=== PATIENT | male | born 2000 | race Caucasian/White ===

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

== ENCOUNTER 2022-06-27 22:34 | Emergency (ER) | payer BC, MEDICAID, SELFPAY ==
[2022-06-27 22:34] VITALS: BP 132/91; PULSE 71; RESP 16; TEMP 36.6; O2SAT 100; BMI 24.4
[2022-06-27 23:01] VITALS: PULSE 66; RESP 16; O2SAT 97
--- NOTE | 2022-06-27 23:01 | EKG12_ITS ---
Test Reason : CP Blood Pressure : / mmHG Vent. Rate : 064 BPM Atrial Rate : 064 BPM P-R Int : 168 ms QRS Dur : 090 ms QT Int : 390 ms P-R-T Axes : 071 077 056 degrees QTc Int : 402 ms Normal sinus rhythm Normal ECG Confirmed by ABELARDO RASHID, ORESTES ([id number]), publications editor CANDIE PEREZ ([id number]) on 06/30/2022 11:23:28 AM Referred By: NELSON Confirmed By:ORESTES ZHOU MD
[2022-06-27 23:11] VITALS: PULSE 42
--- NOTE | 2022-06-27 23:20 | RAD_ITS ---
INDICATION: chest pain EXAMINATION/TECHNIQUE: X-RAY - XR Chest 1 View COMPARISON: None. FINDINGS: LINES/DEVICES: None. LUNGS: No consolidation, edema or effusion. No pneumothorax. MEDIASTINUM AND CARDIOVASCULAR STRUCTURES: Cardiac silhouette not enlarged. Central airways and mediastinal contour are unremarkable. BONES AND SOFT TISSUES: Unremarkable. RAD/Chest 1 View (Portable) IMPRESSION: No acute cardiopulmonary disease. Electronically Signed: Roel Nelson MD at 23:32 EST ,
[2022-06-27 23:44] LABS: Absolute Lymphocyte Count 2.74 X10^3/uL (0.83-4.51); Absolute Neutrophil Count 3.7 X10^3/uL (2.0-7.7); Basophil# 0.06 X10^3/uL; Basophil% 0.8 % (0-1); Eosinophil# 0.22 X10^3/uL; Hematocrit 42.5 % (40-54); Hemoglobin 13.8 g/dL (13.0-16.5); Lymphocyte # 2.74 X10^3/ul (0.83-4.51); Lymphocyte % 37.1 % (19-41); Mean Corp Hgb Conc 32.5 g/dL (32-36); Mean Corpuscular Hgb 29.4 pg (27.0-32.0); Mean Corpuscular Volume 90.6 fL (80-94); Mean Platelet Vol. 10.9 fl (6.2-12.0); Monocyte# 0.67 X10^3/uL; Monocyte% 9.1 % (0-10); NRBC Flagged by Analyzer 0 % (0-5); Neutrophil # 3.67 X10^3/uL (2.7-7.7); Neutrophil % 49.7 % (47-70); Platelet Count 216 K/mm3 (150-450); RBC Distribution Width CV 12.3 % (11.6-14.6); RBC Distribution Width SD 40.2 fl (35.1-43.9); Red Blood Count 4.69 M/mm3 (4.6-6.2); White Blood Count 7.4 K/mm3 (4.4-11.0)
[2022-06-28 00:04] LABS: Anion Gap 1 (5-15); BUN 25 mg/dL (7-18); BUN/Creat Ratio 21.9 RATIO (10-20); Calcium,Total 8.9 mg/dL (8.5-10.1); Chloride 108 mmol/L (98-107); Creatinine, Serum 1.14 mg/dL (0.70-1.30); EST Glomerular Filtration Rate 87 mL/min (>60); Est Glom Filt Rate - Afr Amer 105 mL/min (>60); Estimated Creatinine Clearance 113.45 ml/min; Glucose 108 mg/dL (74-106); Potassium 3.3 mmol/L (3.5-5.1); Sodium Level 139 mmol/L (136-145); Troponin-I HS 5 pg/mL (3.0-78.0)
[2022-06-28 00:24] VITALS: PULSE 64; RESP 15; O2SAT 99
--- NOTE | 2022-06-28 00:56 | EX.ED.DYSGE1 ---
HPI History of Present Illness Chief Complaint: Chest Pain Narrative Narrative: Patient is a 22-year-old male with no significant past medical history. He states that this evening he was having sexual intercourse with his girlfriend and while doing so developed some midsternal chest discomfort. He states there was no radiation of the pain and he denies any nausea vomiting or diaphoresis. He states that there is no illicit drug use. He denies any recent travel surgery or history of DVT/PE. He does state that his father from a sudden cardiac event at age 28. Therefore with his symptom onset and family history he was concerned for cardiac event and comes in for evaluation [facility] Medical History (Updated 06/28/22 @ 00:[address] Law Alvarado DO) monitor for heart issues Home Medications ibuprofen 200 mg tablet 200 mg PO Q6H PRN Pain Or Fever 03/22/20 [History Last Taken Unknown] acetaminophen 500 mg tablet 1,000 mg PO Q6H PRN #100 tabs 04/02/20 [Rx Last Taken Unknown] cephalexin 500 mg capsule (Keflex) 500 mg PO TID #30 caps 04/26/20 [Rx Last Taken Unknown] Allergy/AdvReac Type Severity Reaction Status Date / Time penicillin V Allergy Mild hives Verified 06/27/22 22:36 sulfadimethoxine Allergy Mild Hives Verified 06/27/22 22:36 Family History (Updated 09/08/17 @ 13:07 by Tata Ramirez) Father Myocardial infarction Surgical History (Updated 09/08/17 @ 13:06 by Tata Ramirez) S/P tonsillectomy and adenoidectomy Social History (Updated 06/24/20 @ 15:[address] Jasson Gutiérrez DO) Smoking Status: Never smoker ROS ROS ED Constitutional Constitutional ED: Denies chills or fever(s) ENT ENT ED: Denies sore throat Cardiovascular Cardiovascular: Reports chest pain; Denies palpitations or racing heartbeat Respiratory/Chest Respiratory/Chest: Denies cough or dyspnea Gastrointestinal Gastrointestinal: Denies abdominal pain, diarrhea, nausea or vomiting Genitourinary Genitourinary ED: Denies dysuria Musculoskeletal Musculoskeletal: Denies myalgias Integumentary Denies rash Neurologic Neurologic: Denies headache(s) Hematologic/Lymphatic Hematologic/Lymphatic: Denies easy bleeding or easy bruising EXAM Physical Exam Const Vital Signs: 06/27/22 22:34 06/27/22 23:11 06/27/22 23:01 Temperature 97.8 F Temperature Source Temporal Pulse Rate 71 42 L Respiratory Rate 16 Blood Pressure 132/91 H Blood Pressure Mean 104 Pulse Ox 100 Oxygen Delivery Method Room Air Room Air 06/27/22 23:01 06/28/22 00:24 06/28/22 01:02 Temperature Temperature Source Pulse Rate 66 64 56 L Respiratory Rate 16 15 17 Blood Pressure Blood Pressure Mean Pulse Ox 97 99 98 Oxygen Delivery Method Room Air Room Air Positive well nourished and well developed General Appearance ED: well developed Eyes PERRL and EOMs intact bilaterally Neck supple Chest Wall palpation of chest normal Resp normal respiratory effort and clear to auscultation bilaterally Cardio regular rate and regular rhythm Rate: other Other Details: Radial pulses are plus 2 out of 4 bilaterally they are equal and symmetric Carotid pulses equal and symmetric as well GI normal to inspection, nondistended, normoactive bowel sounds, non-tender, non-distended and no masses GI Narrative: No voluntary guarding or rigidity no pulsatile mass Auscultation: normoactive bowel sounds Palpation: soft Extremity normal to inspection Extremity Narrative: No asymmetric edema no pitting edema negative Homans' sign bilaterally Neuro oriented x3 and CN's II-XII intact bilaterally Sensorium / Orientation: alert Psych mental status grossly normal Skin no rashes or lesions noted MDM MDM MDM Narrative Medical decision making narrative: Patient presented to the ER mildly hypertensive otherwise with stable vitals. He is low risk for cardiovascular disease with his only real risk factor being family history in his father. Because of that history and his sudden onset of symptoms I did elect to perform a basic cardiac work-up. Chest x-ray revealed no acute lung pathology and blood work showed a normal troponin. Therefore at this time as work-up is negative and he is low risk for CAD I do not feel there is need for further evaluation and he is otherwise safe for discharge Lab Data Attestation: I reviewed the patient's lab results. Labs: Laboratory Results - last 24 hr 06/27/22 06/27/22 23:24 23:24 WBC 7.4 RBC 4.69 Hgb 13.8 Hct 42.5 MCV 90.6 MCH 29.4 MCHC 32.5 RDW Std Deviation 40.2 RDW Coeff of Rom 12.3 Plt Count 216 MPV 10.9 Immature Gran % (Auto) 0.300 Neut % (Auto) 49.7 Lymph % (Auto) 37.1 [place] % (Auto) 9.1 Eos % (Auto) 3.0 Baso % (Auto) 0.8 Absolute Neuts (auto) 3.7 Absolute Lymphs (auto) 2.74 Nucleated RBC % 0 Sodium 139 Potassium 3.3 L Chloride 108 H Carbon Dioxide 30.0 Anion Gap 1 L BUN 25 H Creatinine 1.14 Estim Creat Clear Calc 113.45 Est GFR (MDRD) Af Amer 105 Est GFR (MDRD) Non-Af 87 BUN/Creatinine Ratio 21.9 H Glucose 108 H Calcium 8.9 Troponin I High Sens 5 Radiography Diagnostic Testing: Clinical Impression(s) from Imaging Studies Chest X-Ray 06/27/22 23:20 IMPRESSION: No acute cardiopulmonary disease. Electronically Signed: Roel Nelson MD at 23:32 EST Reading Location ID and State: [facility] / [place] Tel , Service support , Discharge Plan Triage Chief Complaint: Chest Pain ED Provider: Law Alvarado Dx/Rx/DC Orders Clinical Impression: Acute nonspecific chest pain with low risk of coronary artery disease Instructions: ED Chest Pain, Uncertain Cause Prescriptions: No Action ibuprofen 200 mg tablet 200 mg PO Q6H PRN (Reason: Pain Or Fever) cephalexin [Keflex] 500 mg capsule 500 mg PO TID Qty: 30 0RF acetaminophen 500 MG tablet 1,000 mg PO Q6H PRN Qty: 100 0RF Primary Care Provider: Vargas Plummer Referrals: Vargas Plummer MD [Primary Care Provider] - Disposition Disposition: Home, Self Care Discharge Date/Time: 06/28/22 01:10
[2022-06-28 01:02] VITALS: PULSE 56; RESP 17; O2SAT 98
== END 2022-06-28 01:10 | disposition home or self-care (01) ==
PROVIDERS: Emergency Provider Emergency Medicine; PCP Pediatrics; Visit Provider Emergency Medicine
DX: R07.89 Other chest pain (principal); Z82.49 Family history of ischemic heart disease and other diseases of the circulatory system
CPT/HCPCS: 71045; 80048; 84484; 85025; 93005; 99284; A4216

== ENCOUNTER → 2023-09-28 | Outpatient (CLI) | payer OTHER, MEDICAID, SELFPAY ==
[2023-09-28 10:15] LABS: Absolute Lymphocyte Count 1.15 X10^3/uL (0.83-4.51); Absolute Neutrophil Count 6.3 X10^3/uL (2.0-7.7); Basophil# 0.06 X10^3/uL; Basophil% 0.7 % (0-1); Eosinophil# 0.37 X10^3/uL; Eosinophils% 4.1 % (0-5); Hematocrit 48.4 % (40-54); Hemoglobin 15.7 g/dL (13.0-16.5); Lymphocyte # 1.15 X10^3/ul (0.83-4.51); Lymphocyte % 12.7 % (19-41); Mean Corp Hgb Conc 32.4 g/dL (32-36); Mean Corpuscular Hgb 29.2 pg (27.0-32.0); Mean Platelet Vol. 10.7 fl (6.2-12.0); Monocyte# 1.07 X10^3/uL; Monocyte% 11.8 % (0-10); NRBC Flagged by Analyzer 0 % (0-5); Neutrophil # 6.34 X10^3/uL (2.7-7.7); Neutrophil % 70.3 % (47-70); Platelet Count 230 K/mm3 (150-450); RBC Distribution Width CV 12.4 % (11.6-14.6); RBC Distribution Width SD 40.6 fl (35.1-43.9); Red Blood Count 5.38 M/mm3 (4.6-6.2)
[2023-09-28 10:47] LABS: ALB/GLOB Ratio 1.2 RATIO (0.9-2.4); AST(SGOT) 19 U/L (15-37); Alanine Aminotransfer ALT/SGPT 24 U/L (16-61); Albumin, Serum 4.5 g/dL (3.2-5.0); Alkaline Phosphatase 64 U/L (45-117); Anion Gap 4 (5-15); BUN 17 mg/dL (7-18); BUN/Creat Ratio 18.2 RATIO (10-20); Calcium,Total 9.4 mg/dL (8.5-10.1); Chloride 106 mmol/L (98-107); Creatinine, Serum 0.93 mg/dL (0.70-1.30); EST Glomerular Filtration Rate 108 mL/min (>60); Est Glom Filt Rate - Afr Amer 131 mL/min (>60); Globulin 3.9 g/dL (2.2-4.2); Glucose 94 mg/dL (74-106); Potassium 4.3 mmol/L (3.5-5.1); Protein, Total 8.4 g/dL (6.4-8.2); Sodium Level 140 mmol/L (136-145)
[2023-09-28 11:18] LABS: HIV - WCH Non-Reactive (Nonreactive); Hepatitis C Antibody Non-Reactive (Nonreactive)
--- OUTSIDE RECORDS SUMMARY | 2023-09-28 21:50 | XMS RPT_ITS | CCD ---
Author Name Unknown Address [address] [facility] [address] [place] [address] Organization [facility] Care Team Providers Care Business Mail Entry Clerk Name Role Phone RADHA WILKINS Attending Unavailable HUNG HYDE Primary Care Unavailable SOSA YOUNGBLOOD Referring UnavailSOSA Ng Primary Care Unavaila DAWIT Odell Attending Unavailable Harriet Parks PSYD Unavailable Margarita Lorenzo APRN.CNP Primary Care Provider MARGARITA LORENZO Attending Unavailable MARGARITA LORENZO Primary Care Unavailable SELF Referring Unavailable Allergies Allergy Classification Reported Allergen(s) Allergy Type Date of Onset Reaction(s) Facility (4 sources) Penicillins; Translations: [PENICILLINS] Propensity to adverse reactions to drug (disorder) 9 [facility] Repository (1 source) Sulfonamides (Antibiotic); Translations: [SULFA ANTIBIOTICS] Propensity to adverse reactions to drug (disorder) 9 [facility] Repository (2 sources) Sulfonamides (Antibiotic); Translations: [SULFA (SULFONAMIDE ANTIBIOTICS)] Drug Allergy 8 [facility] Medications Completed/Discontinued Medications Medication Drug Class(es) Dates Sig (Normalized) Sig (Original) 24 hr venlafaxine 75 mg extended release oral capsule (1 source) Serotonin and Norepinephrine Reuptake Inhibitor Start: 04-25-2021 End: 09-09-2023 take 1 capsule by mouth once daily venlafaxine ER (EFFEXOR XR) 75 mg 24 hr capsule TAKE 1 CAPSULE BY MOUTH EVERY DAY 30 capsule 0 04/25/2021 09/09/2023 Discontinued Problems Active Problems Problem Classification Problem Date Documented Date Episodic/Chronic Adjustment disorders (1 source) Adjustment disorder with mixed anxiety and depressed mood; Translations: [Adjustment disorder with mixed anxiety and depressed mood] Onset: 11-07-2018 09-09-2023 Chronic Anxiety disorders (3 sources) Mixed anxiety and depressive disorder; Translations: [Other specified anxiety disorders] Onset: 12-08-2018 09-09-2023 Chronic Genitourinary symptoms and ill-defined conditions (2 sources) Dysuria; Translations: [Dysuria] Onset: 09-09-2023 09-09-2023 Episodic Immunizations and screening for infectious disease (6 sources) Patient encounter status; Translations: [Encounter for screening for infections with a predominantly sexual mode of transmission] Onset: 09-09-2023 09-09-2023 Episodic Miscellaneous mental health disorders (1 source) Dissociative neurological symptom disorder; Translations: [Conversion disorder with seizures or convulsions] Onset: 03-20-2019 03-20-2019 Chronic Nonspecific chest pain (2 sources) Chest pain; Translations: [Other chest pain] Onset: 09-09-2023 09-09-2023 Episodic Residual codes; unclassified (2 sources) Family history of sudden ; Translations: [Family history of other specified conditions] Onset: 03-18-2015 09-09-2023 Episodic Residual codes; unclassified (1 source) Family history of ischemic heart disease; Translations: [Family history of ischemic heart disease and other diseases of the circulatory system] 09-09-2023 Episodic Residual codes; unclassified (1 source) Family history of other specified conditions; Translations: [Family history of sudden in father] Onset: 09-09-2023 Episodic Residual codes; unclassified (1 source) Family history of ischemic heart disease and other diseases of the circulatory system; Translations: [Family history of first-degree relative with cardiomyopathy] Onset: 09-09-2023 Episodic Past or Other Problems Problem Classification Problem Date Documented Da te Episodic/Chronic Epilepsy; convulsions (1 source) Seizure; Translations: [Unspecified convulsions] Onset: 04-13-2019 09-09-2023 Episodic Other connective tissue disease (1 source) Neuralgia; Translations: [Neuralgia and neuritis, unspecified] Onset: 11-22-2018 09-09-2023 Episodic Other nervous system disorders (1 source) Paresthesia of skin; Translations: [Disturbance of skin sensation] Onset: 11-22-2018 09-09-2023 Episodic Other nervous system disorders (1 source) Paresthesia of upper limb; Translations: [Anesthesia of skin] Onset: 11-22-2018 09-09-2023 Episodic Residual codes; unclassified (1 source) FH: Cardiomyopathy; Translations: [Family history of ischemic heart disease and other diseases of the circulatory system] Onset: 03-18-2015 09-09-2023 Episodic Residual codes; unclassified (1 source) Transient alteration of awareness; Translations: [Transient alteration of awareness] Onset: 10-17-2018 09-09-2023 Episodic Spondylosis; intervertebral disc disorders; other back problems (1 source) Cervical radiculopathy; Translations: [Radiculopathy, cervical region] Onset: 04-20-2018 09-09-2023 Episodic Results Test Name Value Interpretation Reference Range Facil ity Vital Signs Date Time Vital Sign Value Performing Clinician Faci lity 09-09-2023 13:36-0500 Body height 181.6 cm Margarita Lorenzo APRN.[employer] Work Phone: [facility] 09-09-2023 13:36-0500 Body temperature 98.01 [degF] Margarita Lorenzo APRN.[employer] Work Phone: [facility] 09-09-2023 13:36-0500 Body weight 89.81 kg Margarita Lorenzo APRN.[employer] Work Phone: [facility] 09-09-2023 13:36-0500 Diastolic blood pressure 68 mm[Hg] Margarita Lorenzo [employer] Work Phone: [facility] 09-09-2023 13:36-0500 Heart rate 70 /min Margarita Lorenzo [employer] Work Phone: [facility] 09-09-2023 13:36-0500 Respiratory rate 19 /min Margarita Lorenzo [employer] Work Phone: [facility] 09-09-2023 13:36-0500 SaO2% (BldA) [Mass fraction] 98 % Margarita Lorenzo [employer] Work Phone: [facility] 09-09-2023 13:36-0500 Systolic blood pressure 120 mm[Hg] Margarita Lorenzo [employer] Work Phone: [facility] Encounters Encounter Date Encounter Type Care Provider Facility Start: 09-09-2023 End: 09-09-2023 ambulatory MARGARITA LORENZO Facility:[facility] Start: 09-09-2023 End: 09-09-2023 Patient encounter procedure Margarita Lorenzo [employer] Work Phone: [facility] Procedures Date Procedure Procedure Detail Performing Clinician Start: 09-09-2023 Urnls dip stick/tabl et rgnt auto w/o microscopy Margarita Lorenzo [employer] Work Phone: Plan of Treatment Date Care Activity Detail Author Start: 02-18-2025 Urine microalbumin profile DTaP,Tdap,Td Vaccine (7 - Td or Tdap) [facility] Start: 09-09-2023 End: 12-09-2023 CBC W Auto Differential panel - Blood CBC + DIFF Lab Routine Other chest pain Expected: 09/09/2023, Expires: 12/09/2023 [facility] Work Phone: Immunizations Immunization Date Immunization Notes Care Provider Kacey durbin 06-16-2021 influenza, injectabl e, quadrivalent, preservative free Margarita Lorenzo [employer] Work Phone: [facility] Work Phone: 06-16-2021 influenza virus vacc ine, unspecified formulation Margarita Lorenzo [employer] Work Phone: [facility] 05-11-2020 influenza, injectabl e, quadrivalent, preservative free Margarita Lorenzo [employer] Work Phone: [facility] Work Phone: 02-13-2020 meningococcal polysaccharide (groups A, C, Y and W-135) diphtheria toxoid conjugate vaccine (MCV4P) Margarita Lorenzo APRN.[employer] Work Phone: [facility] Work Phone: 05-02-2019 influenza, injectabl e, quadrivalent, preservative free Margarita Queden [employer] Work Phone: [facility] Work Phone: 06-20-2018 influenza, injectable,quadrivalent, preservative free, pediatric Margarita Queden [employer] Work Phone: [facility] Work Phone: 02-08-2018 Human Papillomavirus 9-valent vaccine Margarita Queden [employer] Work Phone: [facility] Work Phone: 06-17-2017 influenza, injectabl e, quadrivalent, preservative free Margarita Queden [employer] Work Phone: [facility] Work Phone: 02-09-2017 Human Papillomavirus 9-valent vaccine Margarita Queden [employer] Work Phone: [facility] Work Phone: 05-16-2016 influenza, injectable,quadrivalent, preservative free, pediatric Margarita Queden [employer] Work Phone: [facility] Work Phone: 06-01-2015 influenza, seasonal, injectable, preservative free Margarita Queden [employer] Work Phone: [facility] Work Phone: 02-18-2015 meningococcal polysaccharide (groups A, C, Y and W-135) diphtheria toxoid conjugate vaccine (MCV4P) Margarita Queden [employer] Work Phone: [facility] Work Phone: 02-18-2015 tetanus toxoid, redu valente diphtheria toxoid, and acellular pertussis vaccine, adsorbed Margarita Queden [employer] Work Phone: [facility] Work Phone: 06-08-2013 influenza, seasonal, injectable Margarita Queden [employer] Work Phone: [facility] Work Phone: 02-07-2013 hepatitis A vaccine, pediatric/adolescent dosage, 2 dose schedule Margarita Queden [employer] Work Phone: [facility] Work Phone: 02-07-2013 varicella virus vaccine Brit tny Queden [employer] Work Phone: [facility] Work Phone: 06-17-2012 influenza virus vacc ine, live, attenuated, for intranasal use Margarita Queden [employer] Work Phone: [facility] Work Phone: 04-22-2010 influenza, seasonal, injectable Margarita Queden [employer] Work Phone: [facility] Work Phone: 03-10-2010 hepatitis A vaccine, pediatric/adolescent dosage, 2 dose schedule Margarita Queden [employer] Work Phone: [facility] Work Phone: 03-10-2010 tetanus toxoid, adsorbed Michaela ttny Queden [employer] Work Phone: [facility] Work Phone: 07-01-2009 novel influenza-H1N1 -09, preservative-free, injectable Margarita Queden [employer] Work Phone: [facility] Work Phone: 05-31-2009 novel influenza-H1N1 -09, preservative-free, injectable Margarita Queden [employer] Work Phone: [facility] Work Phone: 04-06-2009 influenza, seasonal, injectable Margarita Queden [employer] Work Phone: [facility] Work Phone: 05-19-2007 diphtheria, tetanus toxoids and acellular pertussis vaccine, unspecified formulation Margarita Queden [employer] Work Phone: [facility] Work Phone: 05-19-2007 measles, mumps and rubella virus vaccine Margarita Queden [employer] Work Phone: [facility] Work Phone: 05-19-2007 poliovirus vaccine, unspecified formulation Margarita Queden [employer] Work Phone: [facility] Work Phone: 05-19-2006 influenza, seasonal, injectable Margarita Queden [employer] Work Phone: [facility] Work Phone: 05-20-2005 influenza, seasonal, injectable Margarita Queden [employer] Work Phone: [facility] Work Phone: 12-12-2003 diphtheria, tetanus toxoids and acellular pertussis vaccine, unspecified formulation Margarita Queden [employer] Work Phone: [facility] Work Phone: 12-12-2003 poliovirus vaccine, unspecified formulation Margarita Queden [employer] Work Phone: [facility] Work Phone: 09-04-2003 haemophilus influenz ae type b conjugate and Hepatitis B vaccine Margarita Queden [employer] Work Phone: [facility] Work Phone: 09-04-2003 pneumococcal conjuga te vaccine, 7 valent Margarita Queden [employer] Work Phone: [facility] Work Phone: 07-17-2003 diphtheria, tetanus toxoids and acellular pertussis vaccine, unspecified formulation Margarita Queden [employer] Work Phone: [facility] Work Phone: 07-17-2003 haemophilus influenz ae type b vaccine, PRP-T conjugate Margarita Queden [employer] Work Phone: [facility] Work Phone: 07-17-2003 influenza virus vacc ine, whole virus Margarita Queden [employer] Work Phone: [facility] Work Phone: 07-17-2003 measles, mumps and rubella virus vaccine Margarita Queden [employer] Work Phone: [facility] Work Phone: 07-17-2003 pneumococcal conjuga te vaccine, 7 valent Margarita Queden [employer] Work Phone: [facility] Work Phone: 07-17-2003 poliovirus vaccine, inactivated Margarita Queden [employer] Work Phone: [facility] Work Phone: 07-17-2003 varicella virus vaccine Brit tny Queden [employer] Work Phone: [facility] Work Phone: 06-12-2003 diphtheria, tetanus toxoids and acellular pertussis vaccine, unspecified formulation Margarita Queden [employer] Work Phone: [facility] Work Phone: 06-12-2003 haemophilus influenz ae type b vaccine, PRP-T conjugate Margarita Queden [employer] Work Phone: [facility] Work Phone: 06-12-2003 influenza virus vacc ine, whole virus Margarita Queden [employer] Work Phone: [facility] Work Phone: 06-12-2003 measles, mumps and rubella virus vaccine Margarita Queden [employer] Work Phone: [facility] Work Phone: 06-12-2003 pneumococcal conjuga te vaccine, 7 valent Margarita Queden [employer] Work Phone: [facility] Work Phone: 06-12-2003 poliovirus vaccine, inactivated Margarita Queden [employer] Work Phone: [facility] Work Phone: 06-12-2003 varicella virus vaccine Brit tny Queden [employer] Work Phone: [facility] Work Phone: 05-18-2003 diphtheria, tetanus toxoids and acellular pertussis vaccine, unspecified formulation Margarita Queden [employer] Work Phone: [facility] Work Phone: 05-18-2003 haemophilus influenz ae type b vaccine, PRP-T conjugate Margarita Queden [employer] Work Phone: [facility] Work Phone: 05-18-2003 measles, mumps and rubella virus vaccine Margarita Queden [employer] Work Phone: [facility] Work Phone: 05-18-2003 pneumococcal conjuga te vaccine, 7 valent Margarita Queden [employer] Work Phone: [facility] Work Phone: 05-18-2003 poliovirus vaccine, unspecified formulation Margarita Queden [employer] Work Phone: [facility] Work Phone: 05-18-2003 varicella virus vaccine Brit tny Queden [employer] Work Phone: [facility] Work Phone: 2002 diphtheria, tetanus toxoids and acellular pertussis vaccine, unspecified formulation Margartia Queden [employer] Work Phone: [facility] Work Phone: 2002 haemophilus influenz ae type b vaccine, conjugate unspecified formulation Margarita Queden [employer] Work Phone: [facility] Work Phone: 2002 diphtheria, tetanus toxoids and acellular pertussis vaccine, unspecified formulation Margarita Queden [employer] Work Phone: [facility] Work Phone: 2002 haemophilus influenz ae type b vaccine, conjugate unspecified formulation Margarita Queden [employer] Work Phone: [facility] Work Phone: 2002 pneumococcal conjuga te vaccine, 7 valent Margarita Queden [employer] Work Phone: [facility] Work Phone: 2002 poliovirus vaccine, inactivated Margarita Queden [employer] Work Phone: [facility] Work Phone: 2002 diphtheria, tetanus toxoids and acellular pertussis vaccine, unspecified formulation Margarita Queden [employer] Work Phone: [facility] Work Phone: 2002 haemophilus influenz ae type b conjugate and Hepatitis B vaccine Margarita Queden [employer] Work Phone: [facility] Work Phone: 2002 pneumococcal conjuga te vaccine, 7 valent Margarita Queden [employer] Work Phone: [facility] Work Phone: 2002 poliovirus vaccine, inactivated Margarita Queden [employer] Work Phone: [facility] Work Phone: 2002 hepatitis B vaccine, pediatric or pediatric/adolescent dosage Margarita Queden [employer] Work Phone: [facility] Work Phone: Payers Date Payer Category Payer Unknown [id number] 2002 Unknown [id number] 1980 Unknown [id number] Unknown [id number] Unknown [id number] Unknown [id number] Social History Date Type Detail Facility Start: [facility] History of tobacco use Current smoker [facility] History of tobacco use Cigarette Smoker [facility] Start: 09-09-2023 Tobacco use and exposure Smoke less tobacco non-user [facility] Start: 09-09-2023 Alcohol intake Current drinke r of alcohol (finding) [facility] Start: 09-09-2023 History of Social function [facility] Start: 09-09-2023 Tobacco use panel [facility] Adult Depression Scr eening Assessment 2 [facility] Start: 09-09-2023 [facility] Start: 2000 Sex Assigned At Not on file [facility] Progress note 09-09-2023 Note Date & Type Note Facility 09-09-2023 Note HNO ID: [id number] Author: MARGARITA LORENZO APRN.CNP Service: ? Author Type: Nurse Practitioner Type: Progress Notes Filed: 09/09/2023 15:18 Note Text: [facility] Margarita Lorenzo [employer] [address] [place] [address] Dept Dept. Visit Date: September 09, 2023 Mr.Nicholas Garcia Date of : 2000 MRN/E #: [id number] Chief Complaint: Patient presents with: Establish Care Chest Pain History of Present Illness Eddie Garcia is a 23 year old male here today to establish care. I reviewed past medical, surgical, social, and family histories today and updated chart. Allergies, chronic medications, and supplements were also reviewed. He has experienced chest tightness for the last couple years but he hasn't had a PCP in a couple years and wanted to follow up on it. Has been more manageable. Used to smoke marijuana but it made the chest pain worse. Hasn't noticed a difference. Feels like it's his heart but believes anxiety has contributed. His father at the age of 28 from sudden cardiac secondary of HCOM diagnosed on biopsy. History of anxiety and has been on Zoloft but it made his anxiety worse. Has also been on Effexor 75 mg which kept him stable . Has had panic attacks in the past. Was seeing psychiatry in the past and had metabolism test and it showed Effexor was supposed to help. Past of psychogenic non epileptic seizures. Was on Gabapentin for this. 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 22 year old male presenting for chest pain. On 06/27 was engaged in sexual intercourse and began having acute onset substernal chest pain described as a sensation of his heart swelling. Pain was rated as a 7/10 squeezing pain which resolved to a 2/10 over the coming days. The pain is not exacerbated by activity or ADLs. He endorses some nausea associated with the symptoms as well as shortness of breath. He denies any recent URI symptoms or sick contacts. 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 He endorses a history of depression and anxiety and feels that his symptoms of anxiety are getting worse. He previously was managed with medication and therapy, though he is not currently taking any anxiety medications and is not engaged with a therapist. He also endorses a history of reflux for which he willoccasionally take tums. Family history is notable for his father suffering sudden cardiac at 28 years old from HOCM diagnosed on biopsy. Family history is negative for KS in individuals under 50, congenital heart disease, transplant, or other sudden cardiac . Physical exam overall benign; heart with regular rate and rhythm, no murmur, rubs, or clicks, good peripheral perfusion with capillary refill <3 seconds, and strong radial and dorsalis pedis pulses; good respirations and no areas of focality. At this time it is unlikely that chest pain is cardiac in etiology due to lack of changes on EKG, benign physical exam, and history of normal echocardiograms. I suspect that the pain is likely secondary to his acid reflux and is being exacerbated by his uncontrolled anxiety. Recommend following-up with the PCP for reflux and anxiety management, but overall feel that a 4-6 week course of Prilosec or Pepcid would be beneficial for reflux and urged him to schedule with a counselor or therapist in addition to seeking medication management through the PCP. The history is provided by the patient. No language asst was used. Chest Pain This is a recurrent problem. Associated symptoms include palpitations. Pertinent negatives include no cough, no diaphoresis, no dizziness, no fever, no headaches, no shortness of breath and no weakness. Pertinent negatives for past medical history include no seizures (Hx of PNES). PAST MEDICAL HISTORY Diagnosis Date Depression Generalized anxiety disorder PAST SURGICAL HISTORY Procedure Laterality Date ANKLE SURGERY HX Right TONSILLECTOMY AND ADENOIDECTOMY Social History Tobacco Use Smoking status: Former Types: Cigarettes Smokeless tobacco: Never Substance Use Topics Alcohol use: Yes Comment: occ. Drug use: Not Currently Types: Marijuana Comment: stopped because of chest tightness Social History Social History Narrative Not on file Family History Reviewed Including Cardiac Diseases, Psychiatric Diseases, AND Substance Abuse Problem: other (Cardiac arrest) Relation: Father Age of Onset: (Not Specified) ALLERGIES Allergen Reactions Penicillins Hives Sulfa (Sulfonamide * Hives No current outpatient medications on file. No current facility-administered medications for this visit. Review of Systems Review of Systems Constitutional: Negative for appetite change, chills, diaphoresis, fa (more content not included)... [facility] Instructions 09-09-2023 Patient Instructions Note Date & Type Note Facility 09-09-2023 Instructions Margarita Lorenzo APRN.[employer] - 09/09/2023 2:13 PM EST [facility] Outpatient Lab Hours For your convenience, the outpatient laboratory is open during the following hours: Wednesday- Wednesday 7 a.m. - 4:30 p.m. Wednesday: 8 a.m. - 11:45 a.m. The outpatient lab is closed on Sundays and . GET HELP If you have symptoms of clinical depression, you can get help by doing one or more of the followin. Please talk with your doctor. 2. If you are already in treatment, make sure you contact and update your doctor or therapist. 3. Review additional options for care based on patient or provider preference: Central/Multiple Locations: [place] and Associates: 8227 [facility] - [phone] Morales Tiny: [address] Laureano Chauhan. [place] - [phone] [employer] [facility]: 8301 [facility] - [phone] [facility]: 7800 [facility] - [phone] [facility] for Families and Children: [facility]0 [facility] - [phone] (Medicaid only) [facility]: Multiple Locations - [phone] [facility] Department of Psychiatry & Psychology at [phone] (select Option 1) or [phone] (select Option 1) Connections: Multiple Locations - [phone] (Medicaid only) April Rosa [facility] - Multiple Locations - [phone] (Medicaid only) [facility], [facility] Multiple Locations - [phone] Psychological and Behavioral Consultants: Multiple Locations - [phone] [facility]: Multiple Locations - [phone] [place] Locations: [facility]: [address] [facility] - [phone] [facility]: [address]270 [facility]. [place] - [phone] Carol Coley PhD and Associates: [address] [facility] - [phone] [facility] - [address] [facility] [address] [place] - [phone] Chaz Ordaz MD: 26159 [facility] - [phone] [facility] 1834 Ama[facility] [facility], [place] - [phone] [facility]: 992 [facility] , [place] - [phone] [facility], [address] [place] [address] [place] Locations: Mikayla Solorio MD [facility] Inc: [address] Leta Chauhan, [place] - [phone] Carol Coley PhD and Associates: 6101[address] [facility] - [phone] [facility] Services: 19503 [facility] - [phone] [facility].: 3690 [facility] - [phone] [facility], 2490 [facility], [facility] 320[facility] - [phone] [facility], 7350 [facility] - [phone] [facility]: 82998 [facility] - [phone] [place] Locations: [facility] [address] [facility] - [phone] [facility] Services L Johnny Chauhan, [facility] - [phone] [facility] Psychiatry: 1 [facility] - [phone] [facility]: 5410 [facility] - [phone] [facility] - [address] [facility] [address] [place] - [phone] [place] Locations: [facility] - Eros Horner MD Psychiatry, Sleep Medicine - 2420 [facility] - [phone] or [phone] Joe Thorpe MD - 2422 [facility] [phone] [facility] - MIKE Birch, DCSW - [address] - [phone] [facility] - 28[address] [facility] [phone] [facility] (NO Commercial Insurance accepted) - 4726 [facility] [phone] [facility] - Osman Ordonez, [facility], [facility] - 29 [facility] - [phone] MIKE Fajardo - 2409 [facility] [phone] Kisha Pool, [facility] - [address] [phone] Yonatan Guerra, PhD - [address] [phone] Sarah Rosas, [facility] - [address] [phone] Janette Champagne, [facility], [facility] (No Medicare, [place], [place]) - [address] [address], [place] [phone] Uriel Sheppard, [facility] - 5619 Derek Jackson, [place] - [phone] Andres Salas, [facility] - 8659 [facility] [phone] For additional resources and information please call or review the website: [email or web address] If you are feeling suicidal, please call ibeatyou, , or the [employer] Suicide Hotline , Call 911, or go to your nearest emergency room documented in this encounter [facility] History of Present illness Narrative 09-09-2023 Margarita Lorenzo APRN.CNP - 09/09/2023 1:41 PM EST Note Date & Type Note Facility 09-09-2023 History of Presen t illness Narrative Images from the original note were not included. [facility] Margarita ARRIOLA [address] [place] [address] Dept Dept. Visit Date: September 09, 2023 Mr.Nicholas Garcia Date of : 2000 MRN/E #: [id number] Chief Complaint: Patient presents with: Establish Care Chest Pain History of Present Illness Eddie Garcia is a 23 year old male here today to establish care. I reviewed past medical, surgical, social, and family histories today and updated chart. Allergies, chronic medications, and supplements were also reviewed. He has experienced chest tightness for the last couple years but he hasn't had a PCP in a couple years and wanted to follow up on it. Has been more manageable. Used to smoke marijuana but it made the chest pain worse. Hasn't noticed a difference. Feels like it's his heart but believes anxiety has contributed. His father at the age of 28 from sudden cardiac secondary of HCOM diagnosed on biopsy. History of anxiety and has been on Zoloft but it made his anxiety worse. Has also been on Effexor 75 mg which kept him stable . Has had panic attacks in the past. Was seeing psychiatry in the past and had metabolism test and it showed Effexor was supposed to help. Past of psychogenic non epileptic seizures. Was on Gabapentin for this. 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 22 year old male presenting for chest pain. On 06/27 was engaged in sexual intercourse and began having acute onset substernal chest pain described as a sensation of his heart swelling. Pain was rated as a 7/10 squeezing pain which resolved to a 2/10 over the coming days. The pain is not exacerbated by activity or ADLs. He endorses some nausea associated with the symptoms as well as shortness of breath. He denies any recent URI symptoms or sick contacts. 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 He endorses a history of depression and anxiety and feels that his symptoms of anxiety are getting worse. He previously was managed with medication and therapy, though he is not currently taking any anxiety medications and is not engaged with a therapist. He also endorses a history of reflux for which he will occasionally take tums. Family history is notable for his father suffering sudden cardiac at 28 years old from HOCM diagnosed on biopsy. Family history is negative for KS in individuals under 50, congenital heart disease, transplant, or other sudden cardiac . Physical exam overall benign; heart with regular rate and rhythm, no murmur, rubs, or clicks, good peripheral perfusion with capillary refill <3 seconds, and strong radial and dorsalis pedis pulses; good respirations and no areas of focality. At this time it is unlikely that chest pain is cardiac in etiology due to lack of changes on EKG, benign physical exam, and history of normal echocardiograms. I suspect that the pain is likely secondary to his acid reflux and is being exacerbated by his uncontrolled anxiety. Recommend following-up with the PCP for reflux and anxiety management, but overall feel that a 4-6 week course of Prilosec or Pepcid would be beneficial for reflux and urged him to schedule with a counselor or therapist in addition to seeking medication management through the PCP. The history is provided by the patient. No language asst was used. Chest Pain This is a recurrent problem. Associated symptoms include palpitations. Pertinent negatives include no cough, no diaphoresis, no dizziness, no fever, no headaches, no shortness of breath and no weakness. Pertinent negatives for past medical history include no seizures (Hx of PNES). PAST MEDICAL HISTORY Diagnosis Date Depression Generalized anxiety disorder PAST SURGICAL HISTORY Procedure Laterality Date ANKLE SURGERY HX Right TONSILLECTOMY & ADENOIDECTOMY <AGE 14 Social History Tobacco Use Smoking status: Former Types: Cigarettes Smokeless tobacco: Never Substance Use Topics Alcohol use: Yes Comment: occ. Drug use: Not Currently Types: Marijuana Comment: stopped because of chest tightness Social History Social History Narrative Not on file Family History Reviewed Including Cardiac Diseases, Psychiatric Diseases, & Substance Abuse Problem: other (Cardiac arrest) Relation: Father Age of Onset: (Not Specified) ALLERGIES Allergen Reactions Penicillins Hives Sulfa (Sulfonamide * Hives No current outpatient medications on file. No current facility-administered medications for this visit. Review of Systems Review of Systems Constitutional: Negative for appetite change, chills, diaphoresis, fatigue, fever and unexpected weight change. HENT: Negative. Eyes: Negative for visual disturbance. Respiratory: Negative for cough, chest tightness, shortness of breath and wheezing. Cardiovascular: Positive for chest pain and palpitations. Negative for leg swelling. Gastrointestinal: Negative. Endocrine: Negative. Genitourinary: Negative for dysuria, frequency, hematuria, penile pain, scrotal swelling, testicular pain and urgency. Musculoskeletal: Negative. Skin: Negative. Allergic/Immunologic: Negative. Neurological: Positive for light-headedness. Negative for dizziness, seizures (Hx of PNES), syncope, weakness and headaches. Psychiatric/Behavioral: Positive for dysphoric mood and sleep disturbance. The patient is nervous/anxious. Vital Signs BP 120/68 Pulse 70 Temp 98 Resp 19 Ht 5' 11.5 (1.82m) Wt 198 lb (89.8kg) SpO2 98% BMI 27.23 kg/(m^2). Physical Exam Vitals and nursing note reviewed. Constitutional: Appearance: Normal appearance. HENT: Mouth/Throat: Mouth: Mucous membranes are moist. Eyes: Pupils: Pupils are equal, round, and reactive to light. Cardiovascular: Rate and Rhythm: Normal rate and regular rhythm. Pulses: Normal pulses. Heart sounds: Normal heart sounds, S1 normal and S2 normal. No murmur heard. Pulmonary: Effort: Pulmonary effort is normal. Breath sounds: Normal breath sounds and air entry. Musculoskeletal: Cervical back: Neck supple. Right lower leg: No edema. Left lower leg: No edema. Skin: General: Skin is warm and dry. Neurological: Mental Status: He is alert and oriented to person, place, and time. Psychiatric: Mood and Affect: Mood and affect normal. Behavior: Behavior normal. Thought Content: Thought content normal. Cognition and Memory: Cognition normal. Visit Diagnoses (R07.89) Other chest pain (primary encounter diagnosis) (F41.8) Anxiety with depression (Z84.89) Family history of sudden in father (Z82.49) Family history of first-degree relative with cardiomyopathy (Z11.3) Routine screening for STI (sexually transmitted infection) (R30.0) Dysuria (Z11.59) Special screening examination for viral disease (Z11.4) Screening for HIV (human immunodeficiency virus) Assessment and Plan 1. Other chest pain - ICD9: 786.59, ICD10: R07.89 (primary diagnosis) Atypical chest pain, symptoms are not consistent with cardiac ischemia due to nonexertional nature of symptom possible etiology include Costochondritis/chest wall pain, musculoskeletal, and Anxiety - Electrocardiogram - Lab evaluation CMP, CBC, and TSH - Follow up 4 weeks - TSH BLD - CBC + DIFF - COMP METABOLIC PANEL - ECG COMPLETE - ECHO - PERFLUTREN LIPID MICROSPHERES 1.1 MG/ML INJECTION IN NS 10 ML - SODIUM CHLORIDE 0.9 % (FLUSH) INJECTION SYRINGE 2. Anxiety with depression - ICD9: 300.4, ICD10: F41.8 - Will readdress at next appointment. He is not interested in medication at this time. 3. Family history of sudden in father - ICD9: V19.8, ICD10: Z84.89 - ECHO 4. Family history of first-degree relative with cardiomyopathy - ICD9: V17.49, ICD10: Z82.49 - ECG COMPLETE - ECHO 5. Routine screening for STI (sexually transmitted infection) - ICD9: V74.5, ICD10: Z11.3 - GONORRHEA/CHLAMYDIA NAAT 6. Dysuria - ICD9: 788.1, ICD10: R30.0 UA negative - UA DIP B/O 7. Special screening examination for viral disease - ICD9: V73.99, ICD10: Z11.59 - HEPATITIS C ANTIBODY IA WITH CONFIRMATION 8. Screening for HIV (human immunodeficiency virus) - ICD9: V73.89, ICD10: Z11.4 - HIV 1 2 COMBO(AG/AB),WITH REFLEX TO DIFFERENTIATION Discussed above plan with patient and/or caregiver. Patient and/or caregiver agreeable with above plan. Follow up visit Return in about 4 weeks (around 10/07/2023) for Anxiety, needs MyChart code. Margarita Lorenzo APRN.CNP, signed on September 09, 2023 1:41 PM documented in this encounter [facility] Progress note 08-26-2020 Note Date & Type Note Facility 08-26-2020 Note HNO ID: [id number] Author: Nathaly Crowell Service: ? Author Type: Physician Type: Progress Notes Filed: 08/26/2020 3:35 PM Note Text: Outpatient Evaluation AND Management Visit Eddie Garcia August 26, 2020 [id number] BILLING CODE: FW4/Mervat ASSESSMENT Both the primary reason for this visit and comorbid conditions were assessed and reviewed with the patient and guardian. I have reviewed proper monitoring standards and coordination of care for all health concerns for the patient. I have recommended ongoing medical, psychological, and social care in conjunction with the care I am providing. The nature of the patient's primary problem is stable Diagnosis(es): ACTIVE PROBLEM LIST Functional Neurological Symptom Disorder With Attacks Or Seizures PLAN BIOLOGIC INTERVENTIONS -effexro xr 37.5 mg qam - then go up 75 mg qam SAFETY INTERVENTIONS -. EDUCATION/MATERIALS FOR PATIENT OR GUARDIAN - REFERRALS AND COMMUNICATION WITH OTHER PROVIDERS - FOLLOW-UP 1 month Interval History of Presentation AND Illness: Chronicity: The primary issues addressed are chronic This is a 20 year old male presenting with a history of: ACTIVE PROBLEM LIST Functional Neurological Symptom Disorder With Attacks Or Seizures Primary symptoms and problems addressed during this visit: anxiety symptoms and mood symptoms Pt was doing really good - feeling better about himself He broke his leg 03/07 He wasn't able to drive Became worst and worst He was planing to go back to wrestling Then he had to be quarantine because someone on his class had COVID I started spiraling The depression started getting worse since thanksgiving HE had to be quarrantine until the last week of June Mom has been really worried about COVID I had to eat thanksgiving dinner by myself I was so depresseed I f eel so studk on a loop Sleep -- he is going to bed aroudn 2-3 am, tries to go to bed at 11:30 latency is increased He has been taking melatonin He was taking melatonin 15 mg waking up around 9 am Energy low - I don't get out of bed School - he has 1 in person in class at 12:30 school attendance - falling behind Ifeel like I am just existing Motivation -- lost the will to do anything, sports , I started to slack really bad Hopeless I was hoping that things will get better SI Reported some around 1 month ago what is the point of anything nothing for the last month- kurt for safety, I never truly feel that things are good I feel like all hell breaks loose 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 No REVIEW OF SYMPTOMS The ROS from the previous encounter has been reviewed. Current psychiatric ROS assessed: Generalized Anxiety: no issues with generalized anxiety. Medical ROS: GENERAL: No weight loss, malaise or fevers MUSCULOSKELETAL: Negative for joint pain or swelling, back pain or muscle pain NEURO: No history of headaches, syncope, paralysis, seizures or tremors PFSHx: PSYCHIATRIC HISTORY The psychiatric and mental health history from the previous encounter has been reviewed Is the patient active in psychotherapeutic services or with other mental health provider? No Are there other pertinent services that the patient or family are engaged in? No FAMILY HISTORY Has the family dynamic changed from the previous encounter. No SOCIAL HISTORY Are there pertinent substance abuse issues affecting the patient's current presentation? No Are there pertinent environmental/educational/peer/ issues affecting the patient's current presentation? No MEDICAL HISTORY No past medical history on file. No past surgical history on file. ALLERGIES Not on File OBJECTIVE MEDICATION: No current outpatient medications on file prior to visit. No current facility-administered medications on file prior to visit. LABORATORY/IMAGING DATA: Laboratory studies and Imaging has been reviewed where there pertinent findings? No MENTAL STATUS EXAMINATION Appearance: 20 year old male Well dressed, well groomed Alertness and orientation: The patient is alert and oriented to person, place, and situation. Behavior: appropriate, engaged Affect: The patient displays an affect appropriate to the topic and setting Mood: The patient describes his mood as good Speech and Language: Speech and language is described as The patient demonstrates appropriate tone, prosody, daisy, phonetics, and syntax Thought Process: The thought process is appropriate for situation Thought Content: The patient displays thought content appropriate to the interview. Perceptions: The patient demonstr (more content not included)... [facility] Evaluation note Note Date & Type Note Facility documented in this encounter [facility] Reason for referral (narrative) Outpatient Procedure (Routine) - Authorized Note Date & Type Note Facility Referral ID Status Reason Start Date Expiration Date Visits Requested Visits Authorized [id number] Authorized Auto-Generat ed Referral 09/09/2023 09/08/2024 1 1 * Outpatient Procedure (Routine) - Authorized Specialty Diagnoses / Procedures Referred By Caro t Referred To [facility] Diagnoses Other chest pain Family history of first-degree relative with cardiomyopathy Procedures ECG COMPLETE ECG ROUTINE ECG W/LEAST 12 LDS W/I&R Margarita Lorenzo APRN.CNP [address] [place] [address] [facility] [address] [place] [id number] Referral ID Status Reason Start Date Expiration Date Visits Requested Visits Authorized [id number] Authorized Auto-Generat ed Referral 09/09/2023 09/08/2024 1 1 [facility] Summary Purpose Family History No Family History Records FoundNo Family History Records FoundNo Family History Records FoundNo Family History Records Found Advance Directives No Advanced Directives Records FoundNo Advanced Directives Records FoundNo Advanced Directives Records FoundNo Advanced Directives Records Found Additional Source Comments (unrecognized sect ion and content) No Status Records FoundNo Status Records FoundNo Status Records FoundNo Status Records Found INFORMATION SOURCE (unrecogn ized section and content) DATE CREATED AUTHOR AUTHOR'S ORGANIZ ATION 04/26/2021 [facility] DATE CREATED AUTHOR AUTHOR'S ORGANIZ ATION 07/08/2022 [facility] DATE CREATED AUTHOR AUTHOR'S ORGANIZ ATION 09/17/2023 [facility] Source Comments (unrecognize d section and content) In the event this informatio n is protected by the Federal Confidentiality of Alcohol and Drug Abuse Patient Records regulations: The Federal rules restrict any use of the information to criminally investigate or prosecute any alcohol or drug abuse patient.[facility] Reason for Visit (unrecogniz ed section and content) Care Teams (unrecognized sec tion and content) FOR RECORDS PERTAINING TO PATIENTS WHO ARE OR HAVE BEEN ENROLLED IN A CHEMICAL DEPENDENCY/SUBSTANCEABUSE PROGRAM, SOME INFORMATION MAY BE OMITTED. This clinical summary was aggregated from multiple sources. Caution should be exercised in using it in the provision of clinical care. This summary normalizes information from multiple sources, and as a consequence, information in this document may materially change the coding, format and clinical context of patient data. In addition, data may be omitted in some cases. CLINICAL DECISIONS SHOULD BE BASED ON THE PRIMARY CLINICAL RECORDS. [place] [facility]. provides no warranty or guarantee of the accuracy or completeness of information in this document.
== END | disposition home or self-care (01) ==
PROVIDERS: PCP Nurse Practitioner Family; Referring Provider Nurse Practitioner Family; Visit Provider Nurse Practitioner Family
DX: R07.89 Other chest pain (principal); Z11.4 Encounter for screening for human immunodeficiency virus [HIV]; Z11.59 Encounter for screening for other viral diseases
CPT/HCPCS: 36415; 80053; 84443; 85025; 86703; 86803